=== PATIENT | male | born 1960 | race Caucasian/White ===

== ENCOUNTER 2020-12-14 01:42 | Inpatient (IN) | payer OTHER ==
--- NOTE | 2020-12-14 02:34 | ER ---
Nurse's Notes [facility] Name: Rafael Cagle Age: 60 yrs Sex: Male : 1960 Arrival Date: 12/14/2020 Time: 01:55 Bed 23 Private MD: Diagnosis: Unilateral inguinal hernia, without obstruction or gangrene, not specified as recurrent;Cutaneous abscess of abdominal wall-umbilicus;Cellulitis of abdominal wall;Obesity, unspecified;Hypokalemia Presentation: 12/14 02:11 Chief complaint: Patient states: Reports pain and redness to navel hernia that began 1 lp1 day ago, protruding and painful to touch. Coronavirus screen: At this time, the client does not indicate any symptoms associated with coronavirus-19. Ebola Screen: No symptoms or risks identified at this time. Initial Sepsis Screen: Does the patient meet any 2 criteria? No. Patient's initial sepsis screen is negative. Does the patient have a suspected source of infection? No. Patient's initial sepsis screen is negative. Risk Assessment: Do you want to hurt yourself or someone else? Patient reports no desire to harm self or others. Onset of symptoms was December 14, 2020. 02:11 Method Of Arrival: Ambulatory lp1 02:11 Acuity: NUBIA 3 lp1 Historical: - Allergies: 02:14 No Known Allergies; lp1 - Home Meds: 02:14 Metoprolol Tartrate Oral [Active]; lisinopril 40 mg Oral tab once daily [Active]; lp1 - PMHx: 02:14 Hypertensive disorder; lp1 - PSHx: 02:14 Tonsillectomy; lp1 - Immunization history:: Adult Immunizations up to date. - Social history:: Smoking status: Patient reports use of chewing tobacco. - Family history:: not pertinent. Screenin:15 Abuse screen: Denies threats or abuse. Denies injuries from another. Nutritional lp1 screening: No deficits noted. Tuberculosis screening: No symptoms or risk factors identified. Fall Risk None identified. Assessment: 02:16 General: Appears in no apparent distress. Behavior is calm, cooperative, appropriate sj1 for age. Pain: Complains of pain in abdomen Pain does not radiate. Pain currently is 7 out of 10 on a pain scale. at worst was 10 out of 10 on a pain scale. level that patient reports is acceptable is 2 out of 10 on a pain scale. Quality of pain is described as pressure, Pain began 1 day ago. Neuro: No deficits noted. Cardiovascular: No deficits noted. Respiratory: No deficits noted. GI: Reports hernia. : No deficits noted. EENT: No deficits noted. Derm: Skin is red, Skin temperature is warm. Musculoskeletal: No deficits noted. Vital Signs: 02:11 BP 130 / 84; Pulse 116; Resp 20; Temp 98.2(O); Pulse Ox 100% on R/A; Weight 117.93 kg lp1 (R); Height 5 ft. 11 in. (180.34 cm); Pain 7/10; 07:23 BP 109 / 77; Pulse 75; Resp 18; Pulse Ox 97% ; es2 02:11 Body Mass Index 36.26 (117.93 kg, 180.34 cm) lp1 ED Course: 01:55 Patient arrived in ED. wm 02:00 Hai Tellez MD is Attending Physician. king 02:13 Triage completed. lp1 02:14 Arm band placed on. lp1 02:15 No provider procedures requiring assistance completed. Inserted saline lock: 20 gauge sj1 in right antecubital area, using aseptic technique. Blood collected. 02:18 Patient has correct armband on for positive identification. Bed in low position. Call sj1 light in reach. Side rails up X 1. 02:31 Dwanye Carreon is Hospitalizing Provider. king 02:34 XRAY Chest (1 view) In Process Unspecified. EDMS 02:52 Liver (Hepatic) Function Sent. sj1 02:52 Magnesium Sent. sj1 02:52 Basic Metabolic Panel Sent. sj1 02:55 LFT's Sent. sj1 02:55 Magnesium Sent. sj1 03:17 Inserted saline lock: 20 gauge in left forearm, using aseptic technique. sj1 03:58 CT Abd/Pelvis - IV Contrast Only Sent. sj1 07:08 Lucy Bernal, MARE is Primary Nurse. es2 Administered Medications: 02:52 Drug: Zofran (Ondansetron) 4 mg Route: IVP; Site: right antecubital; sj1 03:16 Follow up: Response: No adverse reaction; Pain is decreased sj1 02:53 Drug: Zosyn (piperacillin-tazobactam) 3.375 grams Route: IVPB; Infused Over: 60 mins; sj1 Site: left forearm; 02:53 Drug: morphine 2 mg Route: IVP; Site: right antecubital; sj1 03:16 Follow up: Response: No adverse reaction; Pain is decreased sj1 02:54 Drug: NS 0.9% 1000 ml Route: IV; Rate: 1 bolus; Site: right antecubital; sj1 04:06 Follow up: IV Status: Completed infusion; IV Intake: 1000ml 1 03:11 Drug: vancoMYCIN 1 grams Route: IVPB; Infused Over: 2 hrs; Site: left antecubital; sj1 06:31 Follow up: IV Intake: 250ml sj1 04:05 Drug: NS 0.9% with KCl 20 mEq/L 1000 ml Route: IV; Rate: 125 ml/hr; Site: right sj1 antecubital; 07:24 Follow up: Response: No adverse reaction es2 07:43 Follow up: IV Status: IV converted to saline lock es2 Intake: 04:06 IV: 1000ml; Total: 1000ml. sj1 06:31 IV: 250ml; Total: 1250ml. 1 Outcome: 02:33 Decision to Hospitalize by Provider. [facility] 14:05 Patient left the ED. es2 Signatures: Dispatcher [employer] EDHai Worley MD MD cha Pena, Laura, RN RN lp1 Brisa Mendoza Sade, RN RN sj1 Lucy Bernal RN RN es2 Corrections: (The following items were deleted from the chart) 02:56 02:55 BASIC METABOLIC PANEL+C.LAB.BRZ drawn and sent. [facility] SUSHMAAK
--- NOTE | 2020-12-14 02:34 | EDPHYS ---
Physician Documentation [facility] Name: Rafael Cagle Age: 60 yrs Sex: Male : 1960 Arrival Date: 12/14/2020 Time: 01:55 Bed 23 Private MD: ED Physician Hai Tellez HPI: 12/14 02:23 This 60 yrs old Male presents to ER via Ambulatory with complaints of Hernia king Pain. 02:23 The patient presents with abdominal pain in the periumbilical area. abdominal king distention in the lower abdomen. Onset: The symptoms/episode began/occurred 3 day(s) ago. The symptoms do not radiate. Associated signs and symptoms: none. The symptoms are described as constant, crampy. Modifying factors: The symptoms are alleviated by nothing, the symptoms are aggravated by movement, pressure, touching the area. Severity of pain: At its worst the pain was moderate in the emergency department the pain is unchanged. The patient has not experienced similar symptoms in the past. Historical: - Allergies: 02:14 No Known Allergies; lp1 - Home Meds: 02:14 Metoprolol Tartrate Oral [Active]; lisinopril 40 mg Oral tab once daily [Active]; lp1 - PMHx: 02:14 Hypertensive disorder; lp1 - PSHx: 02:14 Tonsillectomy; lp1 - Immunization history:: Adult Immunizations up to date. - Social history:: Smoking status: Patient reports use of chewing tobacco. - Family history:: not pertinent. ROS: 02:23 Constitutional: Negative for fever, chills, and weight loss, Eyes: Negative for injury, king pain, redness, and discharge, ENT: Negative for injury, pain, and discharge, Neck: Negative for injury, pain, and swelling, Cardiovascular: Negative for chest pain, palpitations, and edema, Respiratory: Negative for shortness of breath, cough, wheezing, and pleuritic chest pain, Back: Negative for injury and pain, : Negative for injury, bleeding, discharge, and swelling, MS/Extremity: Negative for injury and deformity, Skin: Negative for injury, rash, and discoloration, Neuro: Negative for headache, weakness, numbness, tingling, and seizure, Psych: Negative for depression, anxiety, suicide ideation, homicidal ideation, and hallucinations, Allergy/Immunology: Negative for hives, rash, and allergies, Endocrine: Negative for neck swelling, polydipsia, polyuria, polyphagia, and marked weight changes, Hematologic/Lymphatic: Negative for swollen nodes, abnormal bleeding, and unusual bruising. 02:23 Abdomen/GI: Positive for abdominal cramps, abdominal distension, of the umbilical area. Exam: 02:23 Constitutional: This is a well developed, well nourished patient who is awake, alert, king and in no acute distress. Head/Face: Normocephalic, atraumatic. Eyes: Pupils equal round and reactive to light, extra-ocular motions intact. Lids and lashes normal. Conjunctiva and sclera are non-icteric and not injected. Cornea within normal limits. Periorbital areas with no swelling, redness, or edema. ENT: Nares patent. No nasal discharge, no septal abnormalities noted. Tympanic membranes are normal and external auditory canals are clear. Oropharynx with no redness, swelling, or masses, exudates, or evidence of obstruction, uvula midline. Mucous membranes moist. Neck: Trachea midline, no thyromegaly or masses palpated, and no cervical lymphadenopathy. Supple, full range of motion without nuchal rigidity, or vertebral point tenderness. No Meningismus. Chest/axilla: Normal chest wall appearance and motion. Nontender with no deformity. No lesions are appreciated. Cardiovascular: Regular rate and rhythm with a normal S1 and S2. No gallops, murmurs, or rubs. Normal PMI, no JVD. No pulse deficits. Respiratory: Lungs have equal breath sounds bilaterally, clear to auscultation and percussion. No rales, rhonchi or wheezes noted. No increased work of breathing, no retractions or nasal flaring. Back: No spinal tenderness. No costovertebral tenderness. Full range of motion. Male : Normal genitalia with no discharge or lesions. MS/ Extremity: Pulses equal, no cyanosis. Neurovascular intact. Full, normal range of motion. Neuro: Awake and alert, GCS 15, oriented to person, place, time, and situation. Cranial nerves II-XII grossly intact. Motor strength 5/5 in all extremities. Sensory grossly intact. Cerebellar exam normal. Normal gait. Psych: Awake, alert, with orientation to person, place and time. Behavior, mood, and affect are within normal limits. 02:23 Abdomen/GI: Inspection: distension, that is moderate, in the umbilical area, Bowel sounds: active, Palpation: mild abdominal tenderness, moderate abdominal tenderness, in the umbilical area, Liver: no appreciated palpable abnormalities, Hernia: not appreciated. 03:34 ECG was reviewed by the Attending Physician. [facility] Vital Signs: 02:11 BP 130 / 84; Pulse 116; Resp 20; Temp 98.2(O); Pulse Ox 100% on R/A; Weight 117.93 kg lp1 (R); Height 5 ft. 11 in. (180.34 cm); Pain 7/10; 07:23 BP 109 / 77; Pulse 75; Resp 18; Pulse Ox 97% ; es2 02:11 Body Mass Index 36.26 (117.93 kg, 180.34 cm) lp1 MDM: 02:02 Patient medically screened. [facility] 02:26 Differential diagnosis: bowel obstruction, non-specific abd pain, cellulitis, abscess king umbilicus. Data reviewed: vital signs, nurses notes, lab test result(s), EKG, radiologic studies, CT scan, plain films. Data interpreted: monitor and storage bin tender: rate is 116 beats/min, rhythm is regular, Pulse oximetry: on room air is 100 %. Test interpretation: by ED physician or midlevel provider: ECG, plain radiologic studies. Counseling: I had a detailed discussion with the patient and/or guardian regarding: the historical points, exam findings, and any diagnostic results supporting the discharge/admit diagnosis, lab results, radiology results, the need for further work-up and treatment in the hospital. Medication response: Zofran partially relieved the patient's nausea. 12/14 02:22 Order name: CBC with Diff; Complete Time: 03:41 king 12/14 02:22 Order name: LFT's king 12/14 02:22 Order name: Magnesium king 12/14 02:22 Order name: NT PRO-BNP; Complete Time: 03:41 king 12/14 02:22 Order name: PT-INR; Complete Time: 03:41 [facility] 12/14 02:22 Order name: Troponin (emerg Dept Use Only); Complete Time: 03:41 king 12/14 02:22 Order name: Basic Metabolic Panel; Complete Time: 03:41 EDMS 12/14 02:23 Order name: Liver (Hepatic) Function; Complete Time: 03:41 EDAZ 12/14 02:23 Order name: Magnesium; Complete Time: 03:41 EDAZ 12/14 03:00 Order name: SARS-COV-2 RT PCR EDAZ 12/14 08:33 Order name: Osmolality, Urine EDAZ 12/14 08:33 Order name: Urinalysis EDAZ 12/14 02:22 Order name: XRAY Chest (1 view) [facility] 12/14 02:22 Order name: CT Abd/Pelvis - IV Contrast Only [facility] 12/14 09:52 Order name: Comprehensive Metabolic Panel E[facility]Z 12/14 09:52 Order name: Phosphorus [facility] 12/14 09:52 Order name: Lipid Profile [facility] 12/14 09:52 Order name: T4 Free [facility] 12/14 09:52 Order name: Magnesium [facility] 12/14 09:52 Order name: Thyroid Stimulating Hormone [facility] 12/14 09:52 Order name: Transferrin Sat/Iron Binding [facility] 12/14 09:52 Order name: Ferritin [facility] 12/14 10:00 Order name: Osmolality, Serum [facility] 12/14 10:38 Order name: UR SODIUM EDAZ 12/14 10:38 Order name: UR POTASSIUM [facility] 12/14 02:22 Order name: EKG; Complete Time: 02:23 [facility] 12/14 02:22 Order name: Cardiac monitoring; Complete Time: 02:55 [facility] 12/14 02:22 Order name: EKG - Nurse/Tech; Complete Time: 03:11 [facility] 12/14 02:22 Order name: IV Saline Lock; Complete Time: 02:55 [facility] 12/14 02:22 Order name: Labs collected and sent; Complete Time: 02:55 [facility] 12/14 02:22 Order name: O2 Per Protocol; Complete Time: 02:55 [facility] 12/14 02:22 Order name: O2 Sat Monitoring; Complete Time: 03:11 [facility] 12/14 03:34 Order name: CONS Physician Consult EDAZ EC:34 Rate is 80 beats/min. Rhythm is regular. QRS [place] is Normal. SD interval is normal. QRS king interval is normal. QT interval is normal. No Q waves. T waves are Normal. No ST changes noted. Clinical impression: NSR w/ Non-specific ST/T Changes and No evidence of ischemia. Interpreted by me. Reviewed by me. Administered Medications: 02:52 Drug: Zofran (Ondansetron) 4 mg Route: IVP; Site: right antecubital; sj1 03:16 Follow up: Response: No adverse reaction; Pain is decreased sj1 02:53 Drug: Zosyn (piperacillin-tazobactam) 3.375 grams Route: IVPB; Infused Over: 60 mins; sj1 Site: left forearm; 02:53 Drug: morphine 2 mg Route: IVP; Site: right antecubital; sj1 03:16 Follow up: Response: No adverse reaction; Pain is decreased sj1 02:54 Drug: NS 0.9% 1000 ml Route: IV; Rate: 1 bolus; Site: right antecubital; sj1 04:06 Follow up: IV Status: Completed infusion; IV Intake: 1000ml sj1 03:11 Drug: vancoMYCIN 1 grams Route: IVPB; Infused Over: 2 hrs; Site: left antecubital; sj1 06:31 Follow up: IV Intake: 250ml sj1 04:05 Drug: NS 0.9% with KCl 20 mEq/L 1000 ml Route: IV; Rate: 125 ml/hr; Site: right sj1 antecubital; 07:24 Follow up: Response: No adverse reaction es2 07:43 Follow up: IV Status: IV converted to saline lock es2 Disposition Summary: 12/14/20 02:33 Hospitalization Ordered Hospitalization Status: Inpatient Admission king Provider: Dwayne Carreon cha Condition: Fair king Problem: new king Symptoms: have improved king Bed/Room Type: Standard king Location: Telemetry/MedSurg (Inpatient)(12/14/20 13:48) eb Room Assignment: [facility](12/14/20 13:48) eb Diagnosis - Unilateral inguinal hernia, without obstruction or gangrene, not specified as king recurrent - Cutaneous abscess of abdominal wall - umbilicus king - Cellulitis of abdominal wall king - Obesity, unspecified king - Hypokalemia king Forms: - Medication Reconciliation Form king - SBAR form king Signatures: Dispatcher [employer] EDMS Ella Swift RN RN mw Anderson, Corey, MD MD cha Pena, Laura, RN RN lp1 Lucy Dyson Sade, RN RN sj1 Lucy Bernal RN es2 Corrections: (The following items were deleted from the chart) 02:51 02:33 Telemetry/MedSurg (Inpatient) [facility] 02:51 02:33 [facility] 02:56 02:23 BASIC METABOLIC PANEL+C.LAB.MYLENE ordered. EDMS EDMS 03:00 02:48 CORONAVIRUS+MR.LAB.MYLENE ordered. EDMS EDMS 13:48 02:51 [facility] ER HOLD [facility] 13:48 02:51 ERHOLD- [facility]
[2020-12-14] MEDS ORDERED: MORPHINE 2 MG/ML SYR ONE (02:54)
[2020-12-14] MEDS ORDERED: VANCOMYCIN 1 GM/VIAL ONE (02:55)
[2020-12-14] MEDS ORDERED: ONDANSETRON 4 MG/2 ML VIAL ONE (02:55)
[2020-12-14] MEDS ORDERED: NA CHLORIDE 0.9% 250 ML ONE (02:55)
[2020-12-14] MEDS ORDERED: PIPERACIL/TAZO 3.375 GM VIAL IV ONE ×2 (02:55→08:33)
[2020-12-14] MEDS ORDERED: NA CHLORIDE 0.9% 100 ML ONE ×2 (02:55→08:33)
[2020-12-14] MEDS ORDERED: NA CHLORIDE 0.9% 1,000 ML ONE ×3 (02:55→12:25)
[2020-12-14 03:15] LABS: Absolute Lymphocytes (CBC) 0.6 K/uL (0.7-4.9); Basophils % 0.4 % (0-1.3); Hematocrit 38.8 % (39.6-49.0); Lymphocytes % 7.3 % (15.3-44.8); MPV 9.1 fL (7.6-11.3); RBC Red Blood Cell Count 4.86 M/uL (4.33-5.43)
[2020-12-14 03:20] LABS: Protime INR 1.15
[2020-12-14 03:21] LABS: ALT/SGPT 31 U/L (12-78); AST/SGOT 31 U/L (15-37); Albumin 3.8 g/dL (3.4-5.0); Alkaline Phosphatase 92 U/L (45-117); BUN Blood Urea Nitrogen 8 mg/dL (7-18); Bicarbonate 25 mmol/L (21-32); Bilirubin Direct 0.2 mg/dL (0-0.2); Bilirubin Total 0.8 mg/dL (0.2-1.0); Glucose Level 115 mg/dL (74-106); NT PRO-BNP 27 pg/mL (<125); Potassium 3.2 mmol/L (3.5-5.1); Protein, Total 8.1 g/dL (6.4-8.2); Sodium Level 126 mmol/L (136-145); Troponin (Emerg Dept Use Only) < 0.02 ng/mL (0.0-0.045)
[2020-12-14] MEDS ORDERED: NS KCL 20MEQ 1,000 ML IV ONE (04:26)
--- NOTE | 2020-12-14 04:38 | P.HP ---
Certification for Inpatient Patient admitted to: Inpatient With expected LOS: <2 Midnights Patient will require the following post-hospital care: None Practitioner: I am a practitioner with admitting privileges, knowledge of patient current condition, hospital course, and medical plan of care. Services: Services provided to patient in accordance with Admission requirements found in Title 42 Section 412.3 of the Code of Federal Regulations Patient History Date of Service: 12/14/20 Primary Care Provider: Olga Reason for admission: nonreducible umbilical hernia History of Present Illness: Mr. Cagle is a 60 yo M with HTN who presents with painful, erythematous, swollen umbilical hernia since last . He was told to go to the ED if his hernia ever became painful or nonreducbile. CT Abdomen Pelvis pending at this time. Na 126, K 3.2, Cl 89. - Past Medical/Surgical History Diabetic: No -: HTN -: prediabete s -: tonsillectomy - Family History Father -: Heart disease, Diabetes, Cancer Brother -: Heart disease Notes: from [place] - Social History Smoking Status: Never smoker Alcohol use: Yes CD- Drugs: No Caffeine use: No Place of Residence: Home Review of Systems Gastrointestinal: Abdominal Pain, As per HPI Integumentary: As per HPI Physical Examination - Vital Signs Temperature: 98.2 F Blood Pressure: 120/72 Pulse: 85 Respirations: 18 Pulse Ox (%): 98 - Physical Exam General: Alert, In no apparent distress HEENT: Atraumatic, PERRLA, Mucous membr. moist/pink, EOMI, Sclerae nonicteric Neck: Supple, 2+ carotid pulse no bruit, No LAD, Without JVD or thyroid abnormality Respiratory: Clear to auscultation bilaterally, Normal air movement Cardiovascular: Regular rate/rhythm, Normal S1 S2 Gastrointestinal: Normal bowel sounds, No tenderness Musculoskeletal: No tenderness Integumentary: Tenderness/swelling, Erythema, Warmth Neurological: Normal speech, Normal strength at 5/5 x4 extr, Normal tone, Normal affect Lymphatics: No axilla or inguinal lymphadenopathy - Studies Laboratory Data (last 24 hrs) 12/14/20 02:13: PT 13.2 H, INR 1.15 12/14/20 02:13: WBC 7.80, Hgb 12.7 L, Hct 38.8 L, Plt Count 285 12/14/20 02:13: Sodium 126 L, Potassium 3.2 L, BUN 8, Creatinine 0.84, Glucose 115 H, Magnesium 2.0, Total Bilirubin 0.8, AST 31, ALT 31, Alkaline Phosphatase 92 Assessment and Plan - Problems (Diagnosis) (1) Umbilical hernia Current Visit: Yes Status: Acute Qualifiers: Obstruction and gangrene presence: with obstruction but without gangrene Qualified Code(s): K42.0 - Umbilical hernia with obstruction, without gangrene (2) HTN (hypertension) Current Visit: Yes Status: Chronic Qualifiers: Hypertension type: primary hypertension Qualified Code(s): I10 - Essential (primary) hypertension (3) Hyponatremia Current Visit: Yes Status: Acute - Plan surgery consulted, NPO after midnight, DVT ppx continue IVF hydration and IV antibiotics continue pain management as needed reconcile and continue home medications iron panel pending serum and urine osmol, urine Na and K pending thyroid panel and lipid panel pending repeat BMP, will consult nephrology if no improvement in serum Na potassium replacement protocol Discharge Plan: Home Plan to discharge in: 48 Hours - Advance Directives Does patient have a Living Will: No Does patient have a Durable POA for Healthcare: No - Code Status/Comfort Care Code Status Assessed: Yes (full code ) Critical Care: No Time Spent Managing Pts Care (In Minutes): 70
[2020-12-14] MEDS ORDERED: ONDANSETRON 4 MG/2 ML VIAL IV PRN (07:28)
[2020-12-14] MEDS ORDERED: ACETAMINOPHEN 500 MG TAB PO PRN (07:28)
[2020-12-14] MEDS ORDERED: MORPHINE 2 MG/ML SYR IV PRN (07:28)
[2020-12-14] MEDS: KCL 20 MEQ/100 mL IVPB 20 MEQ/100 ML BAG IV SCH ×3 (07:59→10:00)
[2020-12-14] MEDS: NA CHLORIDE 0.9% 1,000 ML IV SCH ×2 (07:59→17:18)
[2020-12-14] MEDS: PIPER TAZO 3.375 GM in NA CHLORIDE 0.9% 100 ML IV SCH ×2 (08:21→17:00)
[2020-12-14 08:33] LABS: Urine Appearance CLEAR (Clear); Urine Bilirubin NEGATIVE (Negative); Urine Blood NEGATIVE (Negative); Urine Color YELLOW (Yellow); Urine Glucose NEGATIVE (Negative); Urine Microscopic Reflex NO UMIC; Urine Protein NEGATIVE (Negative); Urine Specific Gravity >=1.030 (1.005-1.030); Urine pH 5.5 (5.0-7.0)
--- NOTE | 2020-12-14 09:00 | RAD REPORT ---
EXAM DESCRIPTION: RAD - Chest Single View - 12/14/2020 2:34 am CLINICAL HISTORY: COUGH COMPARISON: None TECHNIQUE: AP portable chest image was obtained 12/14/2020 2:34 am . FINDINGS: Lungs are clear. Heart and vasculature are normal. No measurable pleural effusion and no p neumothorax. No acute bony abnormality seen. No acute aortic findings suspected. IMPRESSION: No acute cardiopulmonary process.
[2020-12-14 09:50] LABS: ALT/SGPT 27 U/L (12-78); AST/SGOT 24 U/L (15-37); Albumin 3.4 g/dL (3.4-5.0); Alkaline Phosphatase 83 U/L (45-117); BUN Blood Urea Nitrogen 7 mg/dL (7-18); Bicarbonate 24 mmol/L (21-32); Bilirubin Total 0.7 mg/dL (0.2-1.0); Ferritin 13.7 ng/mL (26-388); Glucose Level 113 mg/dL (74-106); HDL Cholesterol 46 mg/dL (40-60); LDL Cholesterol, Calculated 29 (<130); Phosphorus 3.8 mg/dL (2.5-4.9); Potassium 3.7 mmol/L (3.5-5.1); Protein, Total 7.1 g/dL (6.4-8.2); Sodium Level 130 mmol/L (136-145); Transferrin 313 mg/dL (200-360)
[2020-12-14] MEDS ORDERED: BUPIVACAINE 0.25% PF 10 ML VIAL ONE (11:02)
[2020-12-14] MEDS ORDERED: SUCCINYLCHOLINE 20 MG/ML (10 ML) IV ONE (11:19)
[2020-12-14] MEDS ORDERED: ROCURONIUM 50 MG/5 ML VIAL IV ONE ×2 (11:20→12:17)
[2020-12-14] MEDS ORDERED: MIDAZOLAM HCL 2 MG/2 ML INJ ONE (11:20)
[2020-12-14] MEDS ORDERED: FENTANYL CITR 250 MCG/5 ML ONE (11:20)
[2020-12-14] MEDS ORDERED: propofoL 200 MG/20 ML VIAL IV ONE (11:20)
--- NOTE | 2020-12-14 12:24 | P.OP ---
Preoperative diagnosis: Strangulated Umbilical Hernia Postoperative diagnosis: Strangulated Umbilical Hernia Primary procedure: Open Umbilical Hernia Repair with mesh Secondary procedure: Partial Omentectomy Anesthesia: GETA + Local Estimated blood loss: <20cc Specimen: strangulated omentum Findings: Strangulated Umbilical Hernia with omental necrosis Complications: None Implants: 6.4 cm Round Bard Ventralex Hernia Patch Transferred to: Recovery Room Condition: Good
[2020-12-14] MEDS ORDERED: GLYCOPYRROLATE 0.2 MG/ML SYR ONE ×2 (12:38)
[2020-12-14] MEDS ORDERED: NEOSTIGMINE 1 MG/ML -5 ML ONE (12:38)
[2020-12-14] MEDS ORDERED: HYDROCODONE/APAP 7.5/325 MG TAB PO PRN (12:42)
--- NOTE | 2020-12-14 16:20 | CON ---
Date of Consultation: 12/14/2020 Brief History Of Present Illness: The patient is a 60-year-old male with a history of hype rtension and obesity, who presents with painful erythematous swollen umbilical hernia since last sday. It got progressively worse. He states he is usually able to push the sink down. However, he had an episode of heavy significant laughing, at which point, he felt the hernia popped out and he renteria s been unable to reduce, it got significantly worse, worse pain. His skin became red, tender and he came to the emergency room with the above-stated complaints. Past Medical History: Significant for hypertension, diabetes. Past Surgical History: Includes only tonsillectomy. Family History: His father had heart disease, diabetes, and cancer. Brother had heart disease and d ied from myocardial infarction. Social History: Denies smoking. Alcohol, he drinks socially. He states at least 2 beers a day. De nies recreational drug use Review of Systems: Ten-point review of systems other than HPI, denies. Physical Examination: Vital Signs: At the time of my examination, his temperature was 98.2, blood pressure 120/72, pulse i s 85, respiratory rate 18, temperature 98.0. General: He is awake, alert, oriented. Psychiatric: He is appropriate, conversive. HEENT: Normocephalic. Sclerae anicteric. Mucous membranes are moist. Oropharynx is clear. Neck: Supple without JVD. Chest: Normal expansion and excursion. Cardiovascular: Regular rate and rhythm. Pulmonary: Clear to auscultation bilaterally. Abdomen: Soft with positive skin changes with redness and an irreducible, incarcerated, likely stran gulated umbilical hernia. This is severely tender to palpation. There is mild voluntary guarding an d rebound. Pelvis: Stable. Extremities: No clubbing, cyanosis, or edema. Skin: Warm, dry. Laboratory Data: Revealed a white blood count of 7.8, hemoglobin 12.7, hematocrit 38.8, platelet cou nt was 285, neutrophils 81%. His PT 13.2, INR 1.15. Sodium 130, potassium 3.7, chloride 96, carbon dioxide 24, BUN 7, creatinine 0.7, glucose is 113. His phosphorus 2.8, magnesium 2.0, iron 37.0. Hi s AST 24, ALT 27, alkaline phosphatase is 83. His total bilirubin 0.7. His UA showed 2+ ketones, ot herwise essentially negative. His COVID was negative. His CT scan performed of the abdomen and pelv is, which was officially read as umbilical hernia containing fat only. Mild fat stranding within the herniated fat may be represent early edema. Clinical correlation suggested. Colonic diverticulosis . Assessment/plan: This is a 60-year-old male, who comes in with signs and symptoms of incarcerated st rangulated umbilical hernia. 1.IV fluid hydration. 2.Antibiotic coverage. 3.I have explained risks, benefits, and alternatives of open umbilical hernia repair including but n ot limited to bleeding, infection, damage to the surrounding tissue, need further operation and proce dures, trouble with mesh and other implanted devices. The patient agrees to proceed as indicated. LJ/POLLO Voice ID: [id number] Report ID: [id number]
--- NOTE | 2020-12-14 16:41 | P.PN ---
Date of Service: 12/14/20 Patient seen and examined. Status post omentectomy, umbilical hernia repair for strangulated umbilical hernia with omental necrosis. Patient reports significant improvement in pain. Sodium level has improved. Plan: Pain management as needed. Diet to resumed. Continue IV hydration. Monitor BMP. Possible discharge in a.m. Dr. Greer input appreciated.
[2020-12-14] MEDS ORDERED: CEPACOL LOZENGES PO PRN (18:24)
[2020-12-14] MEDS ORDERED: GUAIFENESIN/DM 5 ML UCUP PO PRN (18:24)
--- NOTE | 2020-12-14 19:32 | RAD REPORT ---
EXAM DESCRIPTION: CT - Abdomen Pelvis W Contrast - 12/14/2020 7:[address] Abdomen and Pelvis With Intravenous Contrast CLINICAL HISTORY: The patient is 60 years old and is Male; ABD PAIN umbilical pain TECHNIQUE: Axial computed tomography images of the abdomen and pelvis with intravenous contrast. Cor onal reformatted images were created and reviewed. This CT exam was performed using one or more of the following dose reduction techniques: automated exposure control, adjustment of the mA and/or kV according to patient size, and/or use of iterative reconstruction technique. COMPARISON: No relevant prior studies available. FINDINGS: Lung bases: Unremarkable. No mass. No consolidation. ABDOMEN: Liver: Unremarkable. No mass. Gallbladder and bile ducts: Unremarkable. No calcified stones. No ductal dilation. Pancreas: No findings to suggest acute pancreatitis. No mass visualized. No ductal dilation. Spleen: Unremarkable. No splenomegaly. Adrenals: Unremarkable. No mass. Kidneys and ureters: Bilateral perinephric stranding, nonspecific. No solid renal lesion or hydro nephrosis. 2.9 cm right renal simple cysts. No follow-up imaging recommended. Stomach and bowel: Colonic diverticulosis. No small bowel dilatation or obstruction. No mucosal thickening. PELVIS: Appendix: No findings to suggest acute appendicitis. Bladder: Unremarkable. No mass. Reproductive: Unremarkable as visualized. ABDOMEN and PELVIS: Intraperitoneal space: Unremarkable. No free air. No significant fluid collection. Bones/joints: Degenerative disc disease L4-5 and L5-S1. Lower lumbar degenerative facet arthropat hy. No acute fracture visualized. No dislocation. Soft tissues: Umbilical hernia containing fat only. Mild internal fat stranding that may represen t early edema. Vasculature: Unremarkable. No abdominal aortic aneurysm. Lymph nodes: No pathologically enlarged lymph nodes. IMPRESSION: 1. Umbilical hernia containing fat only. Mild fat stranding within the herniated fat t hat may represent early edema. Clinical correlation suggested. 2. Colonic diverticulosis. 3. Additional non-emergent findings as above. Electronically signed by: Naheed Del Real MD 12/14/2020 4:30 AM CDT Due to temporary technical issues with the PACS/Fluency reporting system, reports are being signed by the in house radiologists without review as a courtesy to insure prompt reporting. The interpreting radiologist is fully responsible for the content of the report.
--- NOTE | 2020-12-14 20:44 | OP ---
Date of Procedure: 12/14/2020 Surgeon: Mohan Greer MD, Preoperative Diagnosis: Strangulated umbilical hernia. Postoperative Diagnosis: Strangulated umbilical hernia. Procedures Performed: 1.Open umbilical hernia repair with mesh. 2.Partial omentectomy. Anesthesia: General endotracheal with local with 0.25% Marcaine without epinephrine. Estimated Blood Loss: 20 cc. Specimen: Strangulated omentum. Findings: Strangulated omental hernia with omental necrosis. Complications: None. Implants: 6.4 cm round Bard Ventralex hernia patch. Disposition: The patient was transferred to recovery room in good condition. Procedure In Detail: After informed was obtained, the patient was brought to the operating room, pre pped in the usual sterile fashion after adequate anesthesia achieved. I anesthetized the area of the infraumbilical skin, which was all cellulitic down through subcutaneous tissues. I then used a 10 b lade down to cut through subcutaneous tissues. I then used a combination of blunt dissection and andre ctrocautery to dissect down to the hernia neck. I then opened the hernia sac on the inferior portion . Immediately encountered was necrotic omentum. I circumferentially dissected this free from the he rnia sac and the omental attachments. I then delivered the omentum into the surgical field after sli ghtly opening the hernia sac superiorly is approximately 3 cm hernia defect. I brought the omentum i nto the field until good viable omentum was appreciated. I used a LigaSure device to take the nonvia ble omentum out and left only good viable omentum behind. Once the hernia sac and omental contents w ere removed, they were sent off for pathologic examination. I then examined the omentum, which found to be in good position with good hemostasis. I returned to the preperitoneal space in all anatomic position. I then performed finger sweep to the preperitoneal space to ensure there was a good parish g zone for the 6.4 cm round Bard Ventralex mesh. I then in a parachute fashion placed multiple 0 PDS sutures in a circumferential fashion. Approximately 8 sutures were used to place this in the preper itoneal position. I then tied these down once being parachuted and while elevating the abdominal wal l. I flattened out the mesh to ensure it was a good nice apposition to the abdominal wall. Once thi s was performed and secured, I then closed the defect over the top using a running 0 PDS suture and t rimmed the seal/strap at this point. After this was done, I then irrigated the area copiously and anglin ctioned out until completely dry. I closed the deep dermal plane using interrupted 3-0 Vicryl suture s and closed the skin with a 4-0 Monocryl in a running fashion. Dermabond was placed over top. The patient tolerated the procedure well without any complications and transferred to PACU in good condit ion. All counts were correct at the end of the case. LJ/RONNIEL Voice ID: [id number] Report ID: [id number]
[2020-12-15] MEDS: PIPER TAZO 3.375 GM in NA CHLORIDE 0.9% 100 ML IV SCH ×2 (00:24→09:10)
[2020-12-15] MEDS: NA CHLORIDE 0.9% 1,000 ML IV SCH (04:37)
[2020-12-15 05:23] VITALS: BMI 36.1
[2020-12-15 06:17] VITALS: O2SAT 96
--- NOTE | 2020-12-15 07:08 | EKG ---
Test Date: 2020-12-14 Test Time: 03:01:16 [employer] Machine Operator: MEASUREMENT RESULTS: Intervals: Rate: 80 CT: 158 QRSD: 102 QT: 410 QTc: 472 Olden: P: 45 CT: 158 QRS: 19 T: 63 INTERPRETIVE STATEMENTS: Normal sinus rhythm Normal ECG No previous ECG available for comparison Electronically Signed On 12-15-20 07:04:50 CDT by Kory Bain
[2020-12-15 07:14] LABS: ALT/SGPT 25 U/L (12-78); AST/SGOT 20 U/L (15-37); Alkaline Phosphatase 76 U/L (45-117); BUN Blood Urea Nitrogen 5 mg/dL (7-18); Bicarbonate 22 mmol/L (21-32); Bilirubin Total 0.6 mg/dL (0.2-1.0); Glucose Level 108 mg/dL (74-106); Phosphorus 2.9 mg/dL (2.5-4.9); Potassium 3.5 mmol/L (3.5-5.1); Protein, Total 6.8 g/dL (6.4-8.2); Sodium Level 132 mmol/L (136-145)
[2020-12-15] MEDS ORDERED: POTASSIUM CL SA 10 MEQ TAB PO ONE (09:00)
--- NOTE | 2020-12-15 10:46 | P.DS ---
Admission Date: 12/14/20 Discharge Date: 12/15/20 Primary Care Provider: Olga Disposition: ROUTINE DISCHARGE Discharge Condition: GOOD Reason for Admission: nonreducible umbilical hernia - Problems (1) Hyponatremia Current Visit: Yes Status: Acute (2) Strangulated hernia of abdominal wall Current Visit: Yes Status: Acute (3) Umbilical hernia Current Visit: Yes Status: Acute Qualifiers: Obstruction and gangrene presence: with obstruction but without gangrene Qualified Code(s): K42.0 - Umbilical hernia with obstruction, without gangrene (4) HTN (hypertension) Current Visit: Yes Status: Chronic Qualifiers: Hypertension type: primary hypertension Qualified Code(s): I10 - Essential (primary) hypertension Brief History of Present Illness: 60 yo M with HTN presented with painful, erythematous, swollen umbilical hernia. CT abdomen and pelvis done in the ED demonstrate fat containing umbilical hernia, no bowel involvement. Patient's hernia was non reducible and had uncontrolled pain. He was hospitalized for further managed. Hospital Course: Patient admitted to the medical floor. He was seen by Dr. Greer will performed all umbilical hernia repair with mesh and omentectomy for strangulated necrotic omentum. Patient was monitored overnight after surgery. He was kept on antibiotics. He had hyponatremia which significantly improved with IV normal saline. Noted patient is on hydrochlorothiazide for hypertension which was discontinued. His sodium level has improved, patient deemed stable for discharge. Vital Signs/Physical Exam: Temp Pulse Resp BP Pulse Ox 97.3 F 100 H 16 131/83 95 12/15/20 08:00 12/15/20 08:00 12/15/20 08:00 12/15/20 08:00 12/15/20 08:00 General: Alert, In no apparent distress, Oriented x3 HEENT: Mucous membr. moist/pink Neck: JVD not distended Respiratory: Clear to auscultation bilaterally, Normal air movement Cardiovascular: Regular rate/rhythm, Normal S1 S2 Gastrointestinal: Normal bowel sounds, Soft and benign, Non-distended, No tenderness Musculoskeletal: No swelling Integumentary: No rashes Neurological: Normal strength at 5/5 x4 extr Laboratory Data at Discharge: WBC 7.80 K/uL (4.3-10.9) 12/14/20 02:13 Hgb 12.7 g/dL (13.6-17.9) L 12/14/20 02:13 Hct 38.8 % (39.6-49.0) L 12/14/20 02:13 Plt Count 285 K/uL (152-406) 12/14/20 02:13 PT 13.2 SECONDS (9.5-12.5) H 12/14/20 02:13 INR 1.15 12/14/20 02:13 Sodium 132 mmol/L (136-145) L 12/15/20 06:45 Potassium 3.5 mmol/L (3.5-5.1) 12/15/20 06:45 BUN 5 mg/dL (7-18) L 12/15/20 06:45 Creatinine 0.56 mg/dL (0.55-1.3) 12/15/20 06:45 Glucose 108 mg/dL (74-106) H 12/15/20 06:45 Phosphorus 2.9 mg/dL (2.5-4.9) 12/15/20 06:45 Magnesium 2.0 mg/dL (1.8-2.4) 12/15/20 06:45 Total Bilirubin 0.6 mg/dL (0.2-1.0) 12/15/20 06:45 AST 20 U/L (15-37) 12/15/20 06:45 ALT 25 U/L (12-78) 12/15/20 06:45 Alkaline Phosphatase 76 U/L (45-117) 12/15/20 06:45 Triglycerides 71 mg/dL (<150) 12/14/20 08:35 Cholesterol 89 mg/dL (<200) 12/14/20 08:35 HDL Cholesterol 46 mg/dL (40-60) 12/14/20 08:35 Cholesterol/HDL Ratio 1.93 12/14/20 08:35 Home Medications: Metoprolol Tartrate 25 mg PO DAILY 12/14/20 lisinopriL [Lisinopril] 40 mg PO DAILY 12/14/20 Guaif/Dm [Robitussin Dm*] 5 ml PO Q6H PRN #20 ucup 12/15/20 New Medications: Guaif/Dm [Robitussin Dm*] 5 ml PO Q6H PRN #20 ucup PRN Reason: Cough Diet: Regular Activity: No lifting more than 10 lbs Followup: Cameron Espinoza MD [Primary Care Provider] - Mohan Greer MD [ACTIVE - CAN ADMIT] - Time spent managing pt's care (in minutes): 33
--- NOTE | 2020-12-15 10:49 | P.PN ---
Subjective Date of Service: 12/15/20 Primary Care Provider: Olga Chief Complaint: nonreducible umbilical hernia Subjective: Improving (Pain much improved) Physical Examination - Vital Signs Temperature: 97.3 F Blood Pressure: 131/83 Pulse: 100 Respirations: 16 Pulse Ox (%): 95 - Physical Exam General: Alert, In no apparent distress, Cooperative Gastrointestinal: Other (soft, mild appropriate TTP, ND, incision is clean and dry, binder in place.) Assessment And Plan - Current Problems (Diagnosis) (1) Strangulated hernia of abdominal wall Current Visit: Yes Status: Acute Plan: - ok to DC from surgical standpoint - epi called in from my office - post op instructions reviewed with patient - follow up in 2 weeks
[2020-12-15 16:32] VITALS: BP 131/85; TEMP 98
== END 2020-12-15 13:05 | disposition home or self-care (01) | DRG 353 ==
LOC: ER 01:42 → ERHOLD 03:37 → 2ND 13:59
PROVIDERS: ADMIT Internal Medicine; ATTEND Internal Medicine
PROC: 0DBU0ZZ Excision of Omentum, Open Approach (ICD-10-PCS; 2020-12-14)
PROC: 0WUF0JZ Supplement Abdominal Wall with Synthetic Substitute, Open Approach (ICD-10-PCS; principal; 2020-12-14 11:00)
DX: K42.0 Umbilical hernia with obstruction, without gangrene (principal); K55.069 Acute infarction of intestine, part and extent unspecified; E87.1 Hypo-osmolality and hyponatremia; I10 Essential (primary) hypertension; E66.9 Obesity, unspecified; Z68.36 Body mass index [BMI] 36.0-36.9, adult; Z20.822 Contact with and (suspected) exposure to COVID-19
CPT/HCPCS: 36415; 71045; 74177; 80048; 80053; 80061; 80076; 81003; 82728; 83540; 83735; 83880; 83930; 83935; 84100; 84132; 84300; 84439; 84443; 84466; 84484; 85025; 85610; 88302; 93005; 99284; J0330; J2250; J2270; J2405; J2543; J2704; J2710; J3010; J3370; J3480; J7030; J7050; Q9967; U0003